=== PATIENT | male | born 1955 | race Caucasian/White ===

== ENCOUNTER → 2017-01-08 | Outpatient (CLI) | payer BC ==
[2017-01-08 10:31] LABS: Basophils % (A) 1 %; CH 32.5; CHCM 34.7; Eosinophils # (A) 0.2 k/uL (0-0.7); Eosinophils % (A) 4 %; HCT 41.5 % (39.0-53.0); HDW 2.51; HGB 14.5 gm/dL (13.0-17.5); Luc # (Auto) 0.19; Luc % (Auto) 4; Lymphocytes # (A) 1.3 k/uL (1.0-4.8); Lymphocytes % (A) 25 %; MCH 32.8 pg (25.0-35.0); MCV 93.9 fL (80.0-100.0); Mean Platelet Volume 6.6; Monocytes # (A) 0.4 k/uL (0-1.0); Monocytes % (A) 7 %; Neutrophils # (A) 3.3 k/uL (1.3-7.7); Neutrophils % (A) 61 %; RBC 4.42 m/uL (4.30-5.90); RDW 12.3 % (11.5-15.5); WBC 5.4 k/uL (3.8-10.6); WBC (Perox) 5.88
[2017-01-08 10:45] LABS: ALT 50 U/L (21-72); AST 39 U/L (17-59); Alkaline Phosphatase 41 U/L (38-126); Anion Gap 9 mmol/L; Blood Urea Nitrogen 17 mg/dL (9-20); Calcium 9.2 mg/dL (8.4-10.2); Carbon Dioxide 29 mmol/L (22-30); Chloride 102 mmol/L (98-107); Cholesterol 151 mg/dL (<200); Glucose 90 mg/dL (74-99); HDL Cholesterol 58 mg/dL (40-60); Non-African American GFR(MDRD) >60 (>60 ml/min/1.73 sqM); Sodium 140 mmol/L (137-145); Total Bilirubin 0.9 mg/dL (0.2-1.3); Total Protein 6.9 g/dL (6.3-8.2)
== END | disposition home or self-care (01) ==
LOC: LABWHC1 09:26
PROVIDERS: ATTEND Family Medicine
DX: Z00.00 Encounter for general adult medical examination without abnormal findings (principal); I10 Essential (primary) hypertension; Z13.1 Encounter for screening for diabetes mellitus
CPT/HCPCS: 36415; 80053; 80061; 85025

== ENCOUNTER → 2018-01-28 | Outpatient (CLI) | payer BC ==
[2018-01-28 11:37] LABS: ALT 29 U/L (21-72); AST 29 U/L (17-59); Albumin 4.5 g/dL (3.5-5.0); Alkaline Phosphatase 46 U/L (38-126); Anion Gap 11 mmol/L; Blood Urea Nitrogen 17 mg/dL (9-20); Calcium 9.4 mg/dL (8.4-10.2); Carbon Dioxide 28 mmol/L (22-30); Chloride 99 mmol/L (98-107); Cholesterol 185 mg/dL (<200); Glucose 92 mg/dL (74-99); HDL Cholesterol 60 mg/dL (40-60); LDL Cholesterol,Calculated 110 mg/dL (0-99); Potassium 3.9 mmol/L (3.5-5.1); Sodium 138 mmol/L (137-145); Total Bilirubin 1.2 mg/dL (0.2-1.3); Total Protein 7.3 g/dL (6.3-8.2); Triglycerides 76 mg/dL (<150)
[2018-01-28 13:47] LABS: Basophils % (A) 1 %; Eosinophils # (A) 0.3 k/uL (0-0.7); Eosinophils % (A) 5 %; HCT 44.5 % (39.0-53.0); HGB 15.1 gm/dL (13.0-17.5); Lymphocytes # (A) 1.5 k/uL (1.0-4.8); Lymphocytes % (A) 24 %; MCH 31.6 pg (25.0-35.0); MCV 93.1 fL (80.0-100.0); Mean Platelet Volume 6.6; Monocytes # (A) 0.4 k/uL (0-1.0); Monocytes % (A) 7 %; Neutrophils # (A) 3.8 k/uL (1.3-7.7); Neutrophils % (A) 61 %; Platelet Count 152 k/uL (150-450); RBC 4.78 m/uL (4.30-5.90); WBC 6.1 k/uL (3.8-10.6)
== END ==
LOC: LABWHC1 10:33
PROVIDERS: ATTEND Family Medicine
DX: Z00.00 Encounter for general adult medical examination without abnormal findings (principal); I10 Essential (primary) hypertension; Z79.899 Other long term (current) drug therapy
CPT/HCPCS: 36415; 80053; 80061; 85025

== ENCOUNTER → 2019-01-11 | Outpatient (CLI) | payer BC ==
[2019-01-11 12:20] LABS: Basophils % (A) 1 %; Eosinophils # (A) 0.2 k/uL (0-0.7); Eosinophils % (A) 3 %; HCT 44.9 % (39.0-53.0); HGB 15.3 gm/dL (13.0-17.5); Lymphocytes # (A) 1.5 k/uL (1.0-4.8); Lymphocytes % (A) 24 %; MCH 31.6 pg (25.0-35.0); MCHC 34.1 g/dL (31.0-37.0); MCV 92.7 fL (80.0-100.0); Mean Platelet Volume 6.6; Monocytes # (A) 0.4 k/uL (0-1.0); Monocytes % (A) 7 %; Neutrophils # (A) 3.8 k/uL (1.3-7.7); Neutrophils % (A) 63 %; Platelet Count 158 k/uL (150-450); RBC 4.84 m/uL (4.30-5.90); RDW 12.5 % (11.5-15.5); WBC 6.1 k/uL (3.8-10.6)
[2019-01-11 16:38] LABS: African American GFR (CKD) 105.7 (60.0-200.0); Albumin 4.6 g/dL (3.80-4.90); Albumin/Globulin Ratio 2.3 (1.60-3.17); Anion Gap 7.8 mmol/L (4.00-12.00); BUN/Creat Ratio 15.56 Ratio (12.00-20.00); Calcium 9.7 mg/dL (8.7-10.3); Carbon Dioxide 27.2 mmol/L (21.6-31.8); Chol/HDL Ratio 3.55; LDL Cholesterol,Calculated 113.6 mg/dL (0.0-131.0); Potassium 3.5 mmol/L (3.5-5.5); Total Bilirubin 0.9 mg/dL (0.3-1.2); Total Protein 6.6 g/dL (6.2-8.2); VLDL Calculation 16.4 mg/dL (5.00-40.00)
== END ==
LOC: LABWHC1 10:33
PROVIDERS: ATTEND Family Medicine
DX: Z00.00 Encounter for general adult medical examination without abnormal findings (principal); I10 Essential (primary) hypertension; Z79.899 Other long term (current) drug therapy
CPT/HCPCS: 36415; 80053; 80061; 85025

== ENCOUNTER → 2020-02-27 | Outpatient (CLI) | payer BC ==
--- NOTE | 2020-02-27 15:17 | US ---
EXAMINATION TYPE: US duplex aorta DATE OF EXAM: 02/27/2020 COMPARISON: NONE CLINICAL HISTORY: R01.1 Heart murmur z13.6 screening for abdominal. Difficult exam due to patient bod y habitus and overlying bowel gas EXAM MEASUREMENTS: Abdominal Aorta: Proximal: 3.4 x 2.7 x 3.1 cm Mid: 2.9 x 2.5 x 2.5 cm Distal: 2.1 x 2.2 x 2.1 cm Bifurcation: Right: 1.4 x 1.2 x 1.5 cm Left: 1.5 x 1.3 x 1.4 cm Proximal portion appears aneurysmal and measures 3.4cm. Upper limits of normal at the bilateral iliac s IMPRESSION: 1. Atherosclerotic changes with an abdominal aortic aneurysm involving the proximal abdominal aorta m easuring 3.4 x 3.1 cm.
--- NOTE | 2020-02-28 07:06 | ECHOF ---
Referral Reason:R01.1 [facility] z13.6 screening for abdominal MEASUREMENTS -------- HEIGHT: 154.9 cm WEIGHT: 136.1 kg BP: RVIDd: 3.7 cm (< 3.3) IVSd: 1.5 cm (0.6 - 1.1) LVIDd: 4.1 cm (3.9 - 5.3) LVPWd: 1.2 cm (0.6 - 1.1) IVSs: 1.5 cm LVIDs: 3.6 cm LVPWs: 2.0 cm LA Diam: 4.8 cm (2.7 - 3.8) LAESV Index (A-L): 35.85 ml/m Ao Diam: 4.3 cm (2.0 - 3.7) AV Cusp: 1.6 cm (1.5 - 2.6) MV EXCURSION: 27.289 mm (> 18.000) MV EF SLOPE: 96 mm/s (70 - 150) EPSS: 1.0 cm MV E Melvin: 0.46 m/s MV DecT: 261 ms MV A Melvin: 0.65 m/s MV E/A Ratio: 0.71 AV maxP.63 mmHg AV meanP.84 mmHg RAP: 5.00 mmHg RVSP: 34.79 mmHg FINDINGS -------- Sinus rhythm. This was a technically adequate study. Morbid Obesity The left ventricular size is normal. There is mild concentric left ventricular hypertrophy. Overa ll left ventricular systolic function is normal with, an EF between 55 - 60 %. The right ventricle is mildly enlarged. LA is moderately dilated 34-39 ml/m2 The right atrial size is normal. There is mild aortic valve sclerosis. There is no evidence of aortic regurgitation. The mitral valve is normal. Mild mitral regurgitation is present. The tricuspid valve appears structurally normal. Mild tricuspid regurgitation present. Right vent ricular systolic pressure is normal at < 35 mmHg. The right ventricular systolic pressure, as measu red by Doppler, is 34.79mmHg. Trace/mild (physiologic) pulmonic regurgitation. 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 There is no pericardial effusion. CONCLUSIONS -------- 1. There is mild concentric left ventricular hypertrophy. 2. Overall left ventricular systolic function is normal with, an EF between 55 - 60 %. 3. The right ventricle is mildly enlarged. 4. LA is moderately dilated 34-39 ml/m2 5. There is mild aortic valve sclerosis. 6. Mild mitral regurgitation is present. 7. Mild tricuspid regurgitation present. 8. Trace/mild (physiologic) pulmonic regurgitation. 9. 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 10. There is no pericardial effusion. POWER TOOL REPAIR TECHNICIAN: Lizbeth Hennessy RDCS
== END | disposition home or self-care (01) ==
LOC: RADECHMAIN 13:49
PROVIDERS: ATTEND Family Medicine
DX: I71.4 Abdominal aortic aneurysm, without rupture (principal); R01.1 Cardiac murmur, unspecified; I08.1 Rheumatic disorders of both mitral and tricuspid valves
CPT/HCPCS: 93306; 93979

== ENCOUNTER → 2023-03-04 | Outpatient (CLI) | payer MEDICARE ==
--- NOTE | 2023-03-04 09:44 | US ---
EXAMINATION TYPE: US carotid duplex BILAT DATE OF EXAM: 03/04/2023 COMPARISON: NONE CLINICAL INDICATION: Male, 68 years old with history of I77.810 THORACIC AORTIC ECTASIA,I71.40,R09.89 ; bruit TECHNIQUE: Carotid duplex ultrasound examination. Indirect Doppler criteria was utilized. FINDINGS: EXAM MEASUREMENTS: RIGHT: Peak Systolic Velocity (PSV) cm/sec ----- Right CCA: 58.1 ----- Right ICA: 72.3 ----- Right ECA: 95.1 ICA/CCA ratio: 1.2 RIGHT: End Diastole cm/sec ----- Right CCA: 11.5 ----- Right ICA: 25.8 ----- Right ECA: 16 LEFT: Peak Systolic Velocity (PSV) cm/sec ----- Left CCA: 76.6 ----- Left ICA: 76.6 ----- Left ECA: 78.6 ICA/CCA ratio: 1.0 LEFT: End Diastole cm/sec ----- Left CCA: 21.5 ----- Left ICA: 25.4 ----- Left ECA: 13.6 VERTEBRALS (direction of flow): Right Vertebral: Antegrade Left Vertebral: Antegrade Rhythm: Normal NURSING CLERK NOTES: No significant stenosis seen IMPRESSION: No evidence for hemodynamically significant stenosis. Criteria for Assigning % of Stenosis / Diameter reduction (Estimation based on the indirect measurements of the internal carotid artery velocities (ICA PSV). 1. Normal (no stenosis)=ICA PSV < 125 cm/s: ratio < 2.0: ICA EDV<40 cm/s. 2. Less than 50% stenosis=ICA PSV < 125 cm/s: ratio < 2.0: ICA EDV<40 cm/s. 3. 50 to 69% stenosis=ICA PSV of 125 to 230 cm/s: ration 2.0 ? 4.0: ICA EDV 40-100 cm/s. 4. Greater than 70% stenosis to near occlusion= ICA PSV > 230 cm/s: ratio > 4.0: ICA EDV > 100 cm/s. 5. Near occlusion= ICA PSV velocities may be low or undetectable: variable ratio and ICA EDV. 6. Total occlusion=unable to detect flow.
--- NOTE | 2023-03-04 09:46 | US ---
EXAMINATION TYPE: US duplex aorta DATE OF EXAM: 03/04/2023 COMPARISON: NONE CLINICAL INDICATION: Male, 68 years old with history of I77.810 THORACIC AORTIC ECTASIA,I71.40,R09.89 ; dilation TECHNIQUE: Multiple sonographic images of the abdominal aorta are obtained. FINDINGS: EXAM MEASUREMENTS: Abdominal Aorta: Proximal: 2.5 x 2.4 cm Mid: 2.0 x 1.7 cm Distal: 1.7 x 2.0 cm Bifurcation: obscured by bowel gas [employer]ANT MANAGER NOTES: IMPRESSION: No evidence for abdominal aortic aneurysm.
--- NOTE | 2023-03-04 17:57 | CA ---
Transthoracic Echo Report Name: Jasper Solomon Age: 68 Gender: M : 1955 Exam Date: 03/04/2023 13:38 Exam Location: [place] [facility] Ht (in): 73 Wt (lb): 310 Ordering Physician: Reza Acuna MD Attending/Referring Phys: LARY, Kalpana Dance Professor Kandice Joe RDCS Procedure CPT: Indications: I77.810 THORACIC AORTIC ECTASIA,I71.40,R09.89 Cardiac Hx: Technical Quality: Fair Contrast 1: Total Dose (mL): Contrast 2: Total Dose (mL): MEASUREMENTS (Male / Female) Normal Values 2D ECHO LV Diastolic Diameter PLAX 4.3 cm 4.2 - 5.9 / 3.9 - 5.3 cm LV Systolic Diameter PLAX 3.1 cm IVS Diastolic Thickness 1.6 cm 0.6 - 1.0 / 0.6 - 0.9 cm LVPW Diastolic Thickness 1.3 cm 0.6 - 1.0 / 0.6 - 0.9 cm LV Relative Wall Thickness 0.7 LA Volume 70.3 cm??? 18 - 58 / 22 - 52 cm??? LA Volume Index 25.6 cm???/m??? 16 - 28 cm???/m??? M-MODE Aortic Root Diameter MM 4.4 cm AV Cusp Separation MM 1.2 cm DOPPLER AV Peak Velocity 158.3 cm/s AV Peak Gradient 10.0 mmHg AV Mean Velocity 122.5 cm/s AV Mean Gradient 6.4 mmHg AV Velocity Time Integral 28.9 cm AI Peak Velocity 328.9 cm/s AI Peak Gradient 43.3 mmHg AI Pressure Half Time 560.6 ms LVOT Peak Velocity 113.1 cm/s LVOT Peak Gradient 5.1 mmHg LVOT Velocity Time Integral 20.9 cm MV Area PHT 2.8 cm??? Mitral E Point Velocity 47.2 cm/s Mitral A Point Velocity 77.0 cm/s Mitral E to A Ratio 0.6 MV Deceleration Time 270.5 ms MV E' Velocity 4.4 cm/s Mitral E to MV E' Ratio 10.8 FINDINGS Left Ventricle Moderately increased left ventricular wall thickness. Left ventricular cavity size normal. Normal left ventricular systolic function with no obvious regional wall motion abnormalities. Left ventricular ejection fraction is estimated at 55-60 %. Right Ventricle Normal right ventricular size and function. Right Atrium Normal right atrial size. Left Atrium Moderately increased left atrial volume. Mildly increased left atrial area. Mitral Valve Structurally normal mitral valve. No mitral stenosis. Mild mitral regurgitation. Aortic Valve Trileaflet aortic valve. No aortic stenosis. Mild aortic regurgitation. Tricuspid Valve Structurally normal tricuspid valve. Mild tricuspid regurgitation. Pulmonic Valve Structurally normal pulmonic valve. Trace pulmonic regurgitation. Pericardium No pericardial effusion. Aorta Aortic dilatation. CONCLUSIONS Normal LV size and systolic function. Normal LV size and systolic function Calcific aortic valve difficult to visualize Previewed by: Dr. Lobito Fitzgerald MD (Electronically Signed) Final Date: 04 March 2023 17:56
== END | disposition home or self-care (01) ==
LOC: RADUSWWP 08:49
PROVIDERS: ATTEND Family Medicine
DX: I71.40 Abdominal aortic aneurysm, without rupture, unspecified (principal); R09.89 Other specified symptoms and signs involving the circulatory and respiratory systems
CPT/HCPCS: 93306; 93880; 93979